=== PATIENT | female | born 1945 ===

== ENCOUNTER 2017-08-12 06:00 | Day surgery (SDC) | payer OTHER ==
[~2017-08-12 06:00] MED LIST: ASPIR 8181 MG PO; DIOVAN160 M1 PO; DYAZIDE 37.5-21 EACH PO; EVISTA60 MG PO; NEURONTIN300 MG PO; PREVACID15 MG PO; SIMVASTATIN40 MG PO; SYNTHROID88 MCG PO
[2017-08-12] MEDS ORDERED: PERCOCET 5-3251 EACH PO (12:47)
[2017-08-12] MEDS ORDERED: NABUMETONE500 MG PO (12:47)
[2017-08-22] MEDS ORDERED: VOLTAREN100 GM TOP (09:17)
== END 2017-08-12 13:50 | disposition home or self-care (01) ==
LOC: CIR.AMB 06:00
DX: M23.322 Other meniscus derangements, posterior horn of medial meniscus, left knee (principal); M23.352 Other meniscus derangements, posterior horn of lateral meniscus, left knee; M23.312 Other meniscus derangements, anterior horn of medial meniscus, left knee; M22.42 Chondromalacia patellae, left knee; M65.862 Other synovitis and tenosynovitis, left lower leg

== ENCOUNTER 2017-11-20 10:34 | Outpatient (CLI) | payer OTHER ==
[~2017-11-20 10:34] MED LIST changes: +DEPO-MEDRO40 MG/1 ML IJ; +NABUMETONE500 MG PO; +PERCOCET 5-3251 EACH PO; +VOLTAREN100 GM TOP
== END 2017-11-20 10:46 | disposition home or self-care (01) ==
LOC: RAD 10:34
DX: M17.0 Bilateral primary osteoarthritis of knee (principal)